=== PATIENT | female | born 1935 | race Caucasian/White ===

== ENCOUNTER → 2020-11-19 | Day surgery (SDC) | payer MEDICARE, OTHER | LOC: MSO 10:34 | DX: H25.13 Age-related nuclear cataract, bilateral (principal); H43.811 Vitreous degeneration, right eye; H04.121 Dry eye syndrome of right lacrimal gland; I10 Essential (primary) hypertension; E78.00 Pure hypercholesterolemia, unspecified; Z79.899 Other long term (current) drug therapy | CPT/HCPCS: 00142; J0171; J2250; V2632 ==